=== PATIENT | male | born 2000 | race Hispanic/Latino ===

== ENCOUNTER 2022-05-05 16:41 | Emergency (ER) | payer OTHER ==
[2022-05-05] MEDS ORDERED: Bacitracin 1 PK ONE (17:15)
== END 2022-05-05 17:20 | disposition home or self-care (01) ==
LOC: CSHERS 16:41
DX: S31.21XA Laceration without foreign body of penis, initial encounter (principal); X58.XXXA Exposure to other specified factors, initial encounter
CPT/HCPCS: 99282